=== PATIENT | female | born 1980 | race Caucasian/White ===

== ENCOUNTER 2016-08-12 18:20 | Emergency (ER) | payer MEDICAID, OTHER ==
[~2016-08-12] VITALS: Ht 170.2 cm; Wt 78.0 kg
[~2016-08-12 18:20] MED LIST: BACT800T5 PO; CEPH500C3 PO; LAMO100 PO; PERC5TAB12 PO
[2016-08-12 18:25] VITALS: BP 158/104; PULSE 81; RESP 16; TEMP 99.4; O2SAT 100
[2016-08-12 18:37] LABS: BLOOD, URINE SMALL (NEG); GLUCOSE,URINE NEG (NEG); KETONE, URINE NEG (NEG); NITRITE,URINE NEG (NEG)
[2016-08-12 19:04] LABS: METHOD OF COLLECTION VOIDED; RBC, URINE 0-3 /hpf (0-3); URINE COLOR STRAW (YELLW/STRAW)
[2016-08-12 19:05] LABS: BACTERIA, URINE MOD /hpf; COMMENT (UR) CULTURE INDICATED; CULTURE IF INDICATED CULTURE INDICATED
[2016-08-12] MEDS ORDERED: LAMI200T PO (20:10)
--- NOTE | 2016-08-12 20:34 | PD ---
HPI Chief Complaint: Flank/Kidney Pain Time Seen by Provider: 20:13 Travel History International Travel<30 days: No Contact w/Intl Traveler<30days: No Traveled to known affect area: No History of Present Illness HPI The patient is a 35-year-old female that complains of dysuria, frequency and urgency since yesterday. She also has bilateral flank pain, right much greater than left. She has had kidney stones in the past and has a kidney stent for stones. She denies any fever, nausea, vomiting or diarrhea. She states that there is no possibility of . PFSH Past Medical History Diminished Hearing: No Genitourinary: Yes (KIDNEY DISEASE) Kidney Stones: Yes Immunizations Current: Yes Tetanus Vaccination: Unknown Influenza Vaccination: No ?: Not LMP: UTERINE ABLATION/TL : 4 Para: 2 Miscarriage: 2 Tubal Ligation: Yes Past Surgical History Genitourinary Surgery: Yes (KIDNEY STENT FOR KIDNEY STONE) Gynecologic Surgery: Yes (ABLATION) Other Surgery: Yes (BREAST AUGMENTATION) Social History Alcohol Use: Yes (OCC) Tobacco Use: No Substance Use: No Allergies-Medications (Allergen,Severity, Reaction): Coded Allergies: Gentamicin (Verified Allergy, Severe, THROAT SWELLING, 08/12/16) Morphine (Verified Allergy, Mild, RASH, 08/12/16) *MDRO Multi-Drug Resistant Organism (Verified Adverse Reaction, Unknown, ) MRSA (neck wound) - 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 Her vital signs show temperature 99.4, blood pressure 158/104 but otherwise normal. SKIN: Warm and dry. HEAD: Normocephalic. EYES: No scleral icterus. No injection or drainage. NECK: Supple, trachea midline. No JVD or lymphadenopathy. CARDIOVASCULAR: Regular rate and rhythm without murmurs, gallops, or rubs. RESPIRATORY: Breath sounds equal bilaterally. No accessory muscle use. GASTROINTESTINAL: Abdomen soft, with tenderness to direct palpation in the midline suprapubic area and bilateral flanks, nondistended. Right flank tenderness is much more significant than the left flank tenderness. MUSCULOSKELETAL: No cyanosis, or edema. BACK: Nontender without obvious deformity. No CVA tenderness. Data Data Last Documented VS Vital Signs Date Time Temp Pulse Resp B/P Pulse Ox O2 Delivery O2 Flow Rate FiO2 08/12/16 18:25 99.4 81 16 158/104 100 Orders Urinalysis - C+S If Indicated (08/12/16 18:28) Urine Culture (08/12/16 18:30) Labs Laboratory Tests Test 08/12/16 18:30 Urine Collection Type VOIDED Urine Color STRAW Urine Turbidity HAZY Urine pH 6.0 Urine Specific [place] 1.003 Urine Protein NEG mg/dL Urine Glucose (UA) NEG mg/dL Urine Ketones NEG mg/dL Urine Occult Blood SMALL Urine Nitrite NEG Urine Bilirubin NEG Urine Leukocyte Esterase LARGE Urine RBC 0-3 /hpf Urine WBC 25-49 /hpf Urine Bacteria MOD /hpf Microscopic Urinalysis Comment CULTURE INDICATED Urine Collection Time 1830 [facility] Medical Decision Making Medical Screen Exam Complete: Yes Emergency Medical Condition: Yes Medical Record Reviewed: Yes Interpretation(s) The urine shows hazy turbidity, small blood, large leukocyte esterase with 25- 49 white cells and moderate bacteria and culture is indicated. Differential Diagnosis Cystitis, pyelonephritis, urinary stones, infected stone Narrative Course The patient has cystitis, pyelonephritis but there is no evidence of urinary stone. She has bilateral flank tenderness and bilateral suprapubic tenderness with urinary symptoms of cystitis and pyelonephritis but not particularly urinary stones. Diagnosis Primary Impression: Pyelonephritis Additional Impression: Cystitis Additional Instructions: As we discussed, increased liquid intake. Follow-up next week with your primary care physician. The antibiotic is one tablet twice daily for 10 days. The Pyridium will turn her urine orange and it is one tablet 3 times a day as needed for urinary symptoms. Med/Other Pt SpecificInfo: Prescription(s) given Scripts Nitrofurantoin Monohydrate Macrocrystals (Macrobid)100 Mg [id number] Mg PO BID 10 Days Ref 0 Prov:Miki Licea MD 08/12/16 Phenazopyridine (Pyridium)100 Mg [id number] Mg PO Q8H PRN (DYSURIA) #21 TAB Ref 0 Prov:Miki Licea MD 08/12/16 Disposition: 01 DISCHARGE HOME Condition: Stable Miki Licea MD Aug 12, 2016 20:34
[2016-08-12] MEDS ORDERED: PHENAZOPYRIDINE HCL 200 MG TAB PO ONE (20:45)
[2016-08-12] MEDS ORDERED: NITROFURANTOIN MONOHYD MACROCR 100 MG CAP PO ONE (20:45)
[2016-08-12] MEDS ORDERED: PHEN0.4T PO (20:47)
[2016-08-12] MEDS ORDERED: MACR100C2 PO (20:47)
[2016-08-12 20:57] VITALS: BP 133/88
== END 2016-08-12 21:02 | disposition home or self-care (01) ==
LOC: PHED 18:20
DX: N12 Tubulo-interstitial nephritis, not specified as acute or chronic (principal); N30.90 Cystitis, unspecified without hematuria
CPT/HCPCS: 81001; 87086; 99284